=== PATIENT | female | born 2000 ===

== ENCOUNTER 2022-05-29 17:12 | Emergency (ER) | payer OTHER, SELFPAY ==
[2022-05-29 17:35] VITALS: BP 131/80; PULSE 75; RESP 16; TEMP 36.5; O2SAT 98; BMI 20.9
--- NOTE | 2022-05-29 17:35 | ED_ITS ---
HPI - General Adult General Chief complaint: General Medical Stated complaint: infection in pickline Related Data Allergies Allergy/AdvReac Type Severity Reaction Status Date / Time No Known Allergies Allergy Verified 05/29/22 17:40 [facility] Social History Social History Advance Directives: No Advance Directives Information Provided: No Physical Exam ED Vital Signs: Vital Signs - 24 hr 05/29/22 17:35 Temperature 97.7 F Pulse Rate 75 Respiratory Rate 16 Blood Pressure 131/80 Pulse Oximetry 98 Oxygen Delivery Method Room Air BMI result Body Mass Index 20.9 Course Course Course Narrative: This is an RME: Additional HPI, ROS, PE not included below will be deferred to primary provider. 22-year-old female without significant medical history presents the emergency department for evaluation of potential infection to PICC line, was told by to visiting nurses that she likely has infection in her PICC line. Patient is currently using a PICC line for bilateral heel fractures that have gotten infected. Patient was seen and evaluated at [facility] [address] [facility] in [place]. Patient denies any symptoms. Nursing reports that she needs a PICC line changed Physical exam benign. Plan blood cultures, lactic acid. Discharge Plan Discharge Clinical Impression: Eloped from emergency department Patient Disposition: Elopement Interventions: ED Discharge Assessment Last Done: 05/29/22 19:17 Discharge Date/Time: 05/29/22 19:17 Print Language: Armenian
== END 2022-05-29 19:17 | disposition left against medical advice (07) ==
PROVIDERS: Emergency Provider Emergency Medicine
DX: T80.219A Unspecified infection due to central venous catheter, initial encounter (principal); B99.9 Unspecified infectious disease; Z96.89 Presence of other specified functional implants
CPT/HCPCS: 99281; 99282